=== PATIENT | female | born 1970 | race Caucasian/White ===

== ENCOUNTER 2024-11-23 11:00 | Inpatient (IN) | payer OTHER ==
[2024-11-30] MEDS ORDERED: Bupivacaine 0.25% HCL 30 ML VIAL ONE (07:39)
[2024-11-30] MEDS ORDERED: Ropivacaine 0.2% HCl/PF 20 ML ONE (07:39)
[2024-11-30] MEDS ORDERED: Bupivacaine HCl 0.5%/Epinephrine 1:200,000/PF 30 ml Vial ONE (08:49)
[2024-11-30] MEDS ORDERED: CEFAZOLIN 2 GM VIAL ONE (08:49)
[2024-11-30] MEDS ORDERED: Lidocaine 1% w/Epinephrine 1:200K 30 ML VIAL ONE (08:52)
[2024-11-30] MEDS ORDERED: LevoFLOXacin D5W 500 mg (100 mL) BAG ONE (08:59)
[2024-11-30] MEDS ORDERED: PROPOFOL 20 ML ONE (09:02)
[2024-11-30] MEDS ORDERED: Lidocaine 1% PF 5 ML VIAL ONE (09:05)
[2024-11-30] MEDS ORDERED: Rocuronium Bromide 10 MG/ML (10ML VIAL) ONE (09:05)
[2024-11-30] MEDS ORDERED: Glycopyrrolate 0.2 MG/ML 5 ML SYRINGE ONE (09:55)
[2024-11-30] MEDS ORDERED: Ondansetron PF 4 MG/2 ML Vial ONE (11:16)
[2024-11-30] MEDS ORDERED: SUGAMMADEX SODIUM 200 MG/2 ML VIAL ONE (11:19)
[2024-11-30] MEDS ORDERED: Bacitracin 1 PK ONE (11:52)
[2024-11-30] MEDS ORDERED: Ondansetron PF 4 MG/2 ML Vial IVP PRN (12:07)
[2024-11-30] MEDS ORDERED: hydrALAZINE 20 MG/ML VIAL SLOW IVP PRN (12:07)
[2024-11-30 13:42] VITALS: BMI 33.0
[2024-11-30 18:26] LABS: #Basophils Less than 0.03 10x3/uL (0.0-0.2); #Eosinophils Less than 0.03 10x3/uL (0.0-0.5); #Monocytes 0.44 10x3/uL (0.0-1.1); #Neutrophils 7.05 10x3/uL (1.5-8.4); %Basophils 0.1 % (0.0-2.0); %Eosinophils 0.1 % (0.0-6.0); %Lymphocytes 5.4 % (18.0-47.0); %Monocytes 5.5 % (0.0-10.0); %Neutrophils 88.4 % (40.0-75.0); Hematocrit 43.3 % (34.9-44.5); Hemoglobin 14.4 g/dL (12.0-15.5); Mean Corpuscular Hemoglobin 31.8 pg (27.0-33.0); Mean Corpuscular Volume 95.6 fL (81.6-98.3); Platelet Count 152 10x3/uL (150-450); Red Blood Cell (RBC) Count 4.53 10x6/uL (3.90-5.03); White Blood Cell (WBC) Count 7.98 10x3/uL (3.5-10.5)
[2024-11-30 18:32] LABS: Anion Gap 10 mmol/L (10-20); BUN (Urea Nitrogen) 9 mg/dL (9.8-20.1); Chloride 106 mmol/L (98-107); Glucose 162 mg/dL (70-105); Magnesium 1.6 mg/dL (1.6-2.6); Potassium 4.7 mmol/L (3.5-5.1)
[2024-11-30 19:38] LABS: Calc. Creatinine Clearance 124 mL/min (70-130); Calcium 8.6 mg/dL (7.8-10.44); Carbon Dioxide 24 mmol/L (22-29); Sodium 135 mmol/L (136-145)
[2024-11-30] MEDS: Ketorolac Tromethamine 30 MG (1 mL) VIAL IVP SCH (19:46)
[2024-11-30] MEDS: Famotidine 20 MG TAB PO SCH (21:53)
[2024-11-30] MEDS: Gabapentin 300 MG CAP PO SCH (21:53)
[2024-11-30] MEDS: Enoxaparin 40 MG (0.4 mL) SYRINGE SC SCH (21:54)
[2024-11-30] MEDS: risperiDONE 1 MG TAB PO SCH (21:54)
[2024-11-30] MEDS: Divalproex Sodium DR 500 MG TAB PO SCH (21:59)
[2024-12-01 05:06] LABS: Platelet Count 143 10x3/uL (150-450)
[2024-12-01 05:07] LABS: #Basophils Less than 0.03 10x3/uL (0.0-0.2); #Eosinophils Less than 0.03 10x3/uL (0.0-0.5); #Monocytes 0.61 10x3/uL (0.0-1.1); #Neutrophils 4.03 10x3/uL (1.5-8.4); %Basophils 0.2 % (0.0-2.0); %Eosinophils 0.0 % (0.0-6.0); %Lymphocytes 20.6 % (18.0-47.0); %Monocytes 10.4 % (0.0-10.0); %Neutrophils 68.5 % (40.0-75.0); Hematocrit 38.6 % (34.9-44.5); Hemoglobin 12.7 g/dL (12.0-15.5); Mean Corpuscular Hemoglobin 31.4 pg (27.0-33.0); Mean Corpuscular Volume 95.5 fL (81.6-98.3); Red Blood Cell (RBC) Count 4.04 10x6/uL (3.90-5.03); White Blood Cell (WBC) Count 5.88 10x3/uL (3.5-10.5)
[2024-12-01 05:12] LABS: Anion Gap 9 mmol/L (10-20); BUN (Urea Nitrogen) 8 mg/dL (9.8-20.1); Calc. Creatinine Clearance 133 mL/min (70-130); Calcium 8.4 mg/dL (7.8-10.44); Carbon Dioxide 24 mmol/L (22-29); Chloride 111 mmol/L (98-107); Glucose 80 mg/dL (70-105); Potassium 4.9 mmol/L (3.5-5.1); Sodium 139 mmol/L (136-145)
[2024-12-01] MEDS ORDERED: Acetaminophen 325 MG TAB PO PRN (12:08)
[2024-12-01] MEDS: oxyCODONE 5 MG TAB PO PRN (17:12)
[2024-12-02 09:16] VITALS: BP 101/56; TEMP 98.2
== END 2024-12-02 10:46 | disposition home or self-care (01) | DRG 331 ==
LOC: CSHTELE 11-30 07:25
PROVIDERS: ADMIT Surgery; ATTEND Surgery
PROC: 8E0W4CZ Robotic Assisted Procedure of Trunk Region, Percutaneous Endoscopic Approach (ICD-10-PCS; principal; 2024-11-30)
PROC: 0DTF4ZZ Resection of Right Large Intestine, Percutaneous Endoscopic Approach (ICD-10-PCS; principal; 2024-11-30)
DX: K63.5 Polyp of colon (principal); D12.6 Benign neoplasm of colon, unspecified; F17.210 Nicotine dependence, cigarettes, uncomplicated; F31.9 Bipolar disorder, unspecified; G89.4 Chronic pain syndrome; R00.0 Tachycardia, unspecified; Z79.899 Other long term (current) drug therapy
CPT/HCPCS: 36415; 36416; 80048; 83735; 84100; 85025; 88309; 93005; 93010; C1889; J0665; J1100; J1650; J1885; J1956; J2250; J2704; J2795; J7030; P9045; S2900

== ENCOUNTER 2024-11-28 11:18 | Outpatient (CLI) | payer OTHER ==
[2024-11-28 12:27] LABS: Hematocrit 38.9 % (34.9-44.5); Hemoglobin 13.4 g/dL (12.0-15.5); Mean Corpuscular Hemoglobin 32.1 pg (27.0-33.0); Mean Corpuscular Volume 93.1 fL (81.6-98.3); Platelet Count 165 10x3/uL (150-450); Red Blood Cell (RBC) Count 4.18 10x6/uL (3.90-5.03); White Blood Cell (WBC) Count 3.93 10x3/uL (3.5-10.5)
[2024-11-28 12:51] LABS: Anion Gap 12 mmol/L (10-20); BUN (Urea Nitrogen) 15 mg/dL (9.8-20.1); Calc. Creatinine Clearance 0 mL/min (70-130); Calcium 8.6 mg/dL (7.8-10.44); Carbon Dioxide 22 mmol/L (22-29); Chloride 100 mmol/L (98-107); Glucose 82 mg/dL (70-105); Potassium 4.9 mmol/L (3.5-5.1); Sodium 129 mmol/L (136-145)
== END 2024-11-28 11:19 | disposition home or self-care (01) ==
LOC: CSHLAB 11:18
PROVIDERS: ATTEND Surgery
DX: Z01.818 Encounter for other preprocedural examination (principal); Z12.11 Encounter for screening for malignant neoplasm of colon
CPT/HCPCS: 80048; 82378; 85027; 93005; 93010